=== PATIENT | male | born 1960 | race Caucasian/White ===

== ENCOUNTER → 2020-10-10 | Day surgery (SDC) | payer OTHER ==
[~2020-10-10] MED LIST: Rabies Vaccine Human 2.5 UNITS VIAL ONE
== END ==
LOC: CSHER/OP 17:19
PROVIDERS: ATTEND Student in an Organized Health Care Education/Training Program
DX: Z23 Encounter for immunization (principal)
CPT/HCPCS: 90471; 90675

== ENCOUNTER 2023-04-13 05:54 | Day surgery (SDC) | payer BC ==
[2023-04-12 10:13] VITALS: BMI 30.8
[2023-04-13] MEDS ORDERED: PROPOFOL 40 ML ONE (08:37)
== END 2023-04-13 09:38 | disposition home or self-care (01) ==
LOC: CSHSDC 05:54
PROVIDERS: ATTEND Internal Medicine Gastroenterology
PROC: 0DJD8ZZ Inspection of Lower Intestinal Tract, Via Natural or Artificial Opening Endoscopic (ICD-10-PCS; principal; 2023-04-13)
DX: Z12.11 Encounter for screening for malignant neoplasm of colon (principal); I10 Essential (primary) hypertension; K64.8 Other hemorrhoids; E78.5 Hyperlipidemia, unspecified; Z86.010 Personal history of colon polyps; N40.0 Benign prostatic hyperplasia without lower urinary tract symptoms; E66.9 Obesity, unspecified; Z68.30 Body mass index [BMI] 30.0-30.9, adult; Z90.49 Acquired absence of other specified parts of digestive tract; Z79.899 Other long term (current) drug therapy; Z88.5 Allergy status to narcotic agent
CPT/HCPCS: J2704